=== PATIENT | male | born 1940 | race Caucasian/White ===

== ENCOUNTER 2020-08-15 08:44 | Day surgery (SDC) | payer MEDICARE, BC ==
[~2020-08-15 08:44] MED LIST: Lactated Ringers 1,000 ML IV SCH; Sodium Chloride 0.9% 10 ML Syringe FLUSH PRN
[2020-08-15] MEDS ORDERED: Citric Acid/Sodium Citrate Solution 30 ML Cup PO ONE (09:00)
[2020-08-15] MEDS ORDERED: fentaNYL 100 MCG/2 ML SDV ONE (09:11)
[2020-08-15] MEDS ORDERED: Propofol 200 MG/20 ML SDV ONE (09:11)
[2020-08-15 11:21] VITALS: BP 117/61; PULSE 74
--- NOTE | 2020-08-16 08:06 | OR ---
PREOPERATIVE DIAGNOSES: 1. History of colon polyps. 2. Iron deficiency anemia. POSTOPERATIVE DIAGNOSES: 1. Two small polyps removed. a. 2 mm polyp at 115 cm, removed using cold forceps. b. 4 mm polyp at 100 cm, removed using cold snare on the way in. 2. Long redundant colon. 3. Mild left-sided diverticulosis. 4. Mild hemorrhoids, not acutely inflamed. 5. Significantly enlarged prostate without any palpable nodules. PROCEDURE: Colonoscopy with polypectomy x2 (1 using cold forceps and 1 using cold snare). SURGEON: Sandeep Bauer M.D. ANESTHESIA: Monitored anesthesia care. BOWEL PREP: Fair. It did require moderate amount of irrigation and suctioning. DESCRIPTION OF PROCEDURE: Trevor is an 80-year-old male who was brought to the endoscopy suite after discussing risks and benefits of the procedure. Informed consent was obtained for conscious sedation and colonoscopy with or without biopsy and/or polypectomy. We also discussed possibility of missed lesions. Pre-procedure exam was unremarkable. IV, oxygen, and monitors were placed. The patient was placed in the left lateral decubitus position. Sedation was administered and a digital rectal exam was performed and was remarkable for significantly enlarged prostate, but no palpable nodules. Colonoscope was passed into the rectum and slowly advanced all the way to the cecum. Cecum was viewed and photographed. A brief view of the terminal ileum showed normal-appearing mucosa. Colonoscope was slowly withdrawn, mucosa closely observed in direct circumferential manner. The ascending colon revealed 2 mm polyp at 115 cm, removed using cold forceps. The transverse colon revealed 4 mm polyp at 100 cm, removed using cold snare. The descending and sigmoid colon revealed some mild diverticulosis. There was no inflammation or polyps noted on the left side. Retroflexion was performed. Rectal mucosa revealed some mild hemorrhoids, not acutely inflamed. Scope was removed. The patient tolerated the procedure well. The patient was monitored until that baseline status. Discharge instructions were reviewed and the patient was discharged in good condition. COMPLICATIONS: None. TOTAL TIME: 32 minutes. ESTIMATED BLOOD LOSS: About 1 mL. RECOMMENDATIONS/FOLLOWUP: We will await results of path report to determine ideal followup interval. Given the patient's age, he may even be done with colonoscopies. I would like to kindly thank Kasey Kim for this referral. DMB: 08/15/2020 12:20:59 MODL: 08/15/2020 14:53:59 /[id number]
--- NOTE | 2020-08-16 08:06 | OR ---
SURGERY DATE: 08/15/2020. REFERRING PROVIDER: Kasey Kim DO PRE-OPERATIVE DIAGNOSES: 1. Gastroesophageal reflux disease with esophagitis. The patient is on pantoprazole 40 mg p.o. twice a day. 2. Iron deficiency anemia. The patient denies any dysphagia. His last esophagogastroduodenoscopy was done in 2014 and 2015. POST-OPERATIVE DIAGNOSES: 1. 5 cm sliding-type hiatal hernia with some minimal esophagitis present. 2. Chronic appearing antritis. Cold biopsy x4 bites taken. PROCEDURE: Esophagogastroduodenoscopy with cold biopsy x1 site using cold forceps (antrum). SURGEON: Sandeep Bauer M.D. ANESTHESIA: Monitored anesthesia care. Trevor is an 80-year-old male who was brought to the endoscope suite after discussion of risks and benefits (including but not limited to reaction to medication, bleeding, infection, aspiration, perforation). Informed consent was obtained for monitored anesthesia care and esophagogastroduodenoscopy along with possible biopsy and/or dilatation. Pre-procedure exam including oral cavity was unremarkable. IV, oxygen, and monitors were placed. Patient was placed in the left lateral position and sedation was administered. A bite block was placed gently and scope lightly lubricated and passed through the bite block and over the tongue. Hypopharynx and vocal cords were visualized and unremarkable. Scope was passed through the cricopharynx and into the esophagus. The scope was then passed through the distal esophagus and the GE junction was visualized and photographed. The GE junction was remarkable for 5 cm sliding-type hiatal hernia with some minimal esophagitis present. Vocal cords were visualized and unremarkable. The scope was advanced into the stomach and gastric madera was suctioned. Pylorus was identified and intubated and then the scope was advanced to the third portion of the duodenum. The second portion of the duodenum was unremarkable. The duodenal bulb was visualized and unremarkable. The scope was brought back into the stomach. The pylorus and the antrum revealed what looked to be some chronic appearing antritis. Cold biopsy x4 bites were taken using cold forceps. We will also check for H pylori with these biopsies. The scope was then retroflexed to visualize the angularis, fundus, body, and cardia. These were unremarkable. The stomach was desufflated of air and then the scope was slowly withdrawn, and the esophagus was closely visualized during withdrawal all the way into the posterior pharynx and this was also unremarkable. The patient tolerated the procedure well and went to recovery in stable condition. The patient was monitored until at baseline status. Findings and discharge instructions were reviewed and the patient was discharged in good condition. COMPLICATIONS: None. TOTAL TIME: 9 minutes. ESTIMATED BLOOD LOSS: About 1 mL. RECOMMENDATIONS/FOLLOW-UP: We will await results of path report and send letter with results. The patient can continue on his Protonix 40 mg twice a day. Lifestyle modification with avoidance of late night meals was also warranted. I would like to kindly thank Kasey Kim for this referral. DMB: 08/15/2020 12:16:50 MODL: 08/15/2020 14:46:03 /[id number]
== END 2020-08-15 12:15 | disposition home or self-care (01) ==
LOC: VM.SDS 08:44
PROVIDERS: ATTEND Family Medicine
DX: D12.6 Benign neoplasm of colon, unspecified (principal); K57.30 Diverticulosis of large intestine without perforation or abscess without bleeding; K29.60 Other gastritis without bleeding; K21.00 Gastro-esophageal reflux disease with esophagitis, without bleeding; K31.89 Other diseases of stomach and duodenum; K64.9 Unspecified hemorrhoids; Q43.8 Other specified congenital malformations of intestine; K44.9 Diaphragmatic hernia without obstruction or gangrene; D50.9 Iron deficiency anemia, unspecified; N18.30 Chronic kidney disease, stage 3 unspecified; N40.0 Benign prostatic hyperplasia without lower urinary tract symptoms; Z01.812 Encounter for preprocedural laboratory examination; Z20.822 Contact with and (suspected) exposure to COVID-19; J44.9 Chronic obstructive pulmonary disease, unspecified; Z99.81 Dependence on supplemental oxygen; Z88.1 Allergy status to other antibiotic agents; Z87.891 Personal history of nicotine dependence; Z86.010 Personal history of colon polyps; Z86.718 Personal history of other venous thrombosis and embolism; Z87.19 Personal history of other diseases of the digestive system; Z98.890 Other specified postprocedural states; Z79.899 Other long term (current) drug therapy; Z88.5 Allergy status to narcotic agent
CPT/HCPCS: 00813; 88305; A9270-GY; J2704; J3010; J7120; U0002

== ENCOUNTER 2021-07-16 19:39 | Inpatient (IN) | payer MEDICARE, BC ==
[2021-07-16] MEDS ORDERED: Sodium Chloride 0.9% 10 ML Syringe FLUSH PRN (19:46)
[2021-07-16] MEDS ORDERED: Albuterol/Ipratropium 3.0-0.5 MG/3 ML Neb Soln NEB ONE (19:47)
[2021-07-16] MEDS ORDERED: Budesonide 0.5 MG/2 ML Neb Susp NEB ONE (19:58)
[2021-07-16] MEDS ORDERED: cefTRIAXone 2 GM Vial IVPUSH ONE (19:58)
[2021-07-16] MEDS ORDERED: methylPREDNISolone Sodium Succinate 125 MG/2 ML SDV IVPUSH ONE (19:58)
[2021-07-16] MEDS ORDERED: Lactated Ringers 1,000 ML IV ONE (20:04)
[2021-07-16] MEDS ORDERED: Azithromycin 500 MG in Sodium Chloride 0.9% 250 ML IV ONE (20:05)
[2021-07-16 20:32] LABS: CHLORIDE,CL 105 mmol/L (98-107); SODIUM,NA 145 mmol/L (136-145)
[2021-07-16 20:35] LABS: ANION GAP 16.1 mmol/L (5-15)
[2021-07-16 20:45] LABS: CORONAVIRUS COVID-19 NAA NEGATIVE (NEGATIVE); RESPIRATORY SYNCYTIAL VIR NAA NEGATIVE (NEGATIVE)
[2021-07-16] MEDS ORDERED: Acetaminophen 325 MG Tab PO PRN (22:21)
[2021-07-16] MEDS: Albuterol 0.083% 2.5 MG/3 ML Neb Soln NEB SCH (23:02)
[2021-07-16] MEDS: Lactated Ringers 1,000 ML IV SCH (23:12)
[2021-07-17] MEDS: methylPREDNISolone Sodium Succinate 125 MG/2 ML SDV IVPUSH SCH ×2 (02:28→08:59)
[2021-07-17] MEDS: Albuterol 0.083% 2.5 MG/3 ML Neb Soln NEB SCH ×5 (02:28→20:15)
[2021-07-17] MEDS: Lactated Ringers 1,000 ML IV SCH (06:30)
[2021-07-17] MEDS ORDERED: Pantoprazole 40 MG Tab.CR PO SCH (07:00)
[2021-07-17 07:16] LABS: ANION GAP 14.5 mmol/L (5-15)
[2021-07-17] MEDS ORDERED: Acetaminophen 500 MG Tab PO PRN (08:59)
[2021-07-17] MEDS ORDERED: Albuterol HFA 18 Gm Inhaler INH PRN (08:59)
[2021-07-17] MEDS ORDERED: Albuterol/Ipratropium 3.0-0.5 MG/3 ML Neb Soln NEB PRN (08:59)
[2021-07-17] MEDS ORDERED: Aluminum Hydroxide/Magnesium Hydroxide/Simethicone Susp 30 ML Cup PO PRN (08:59)
[2021-07-17] MEDS ORDERED: Melatonin 3 MG Tab PO PRN (08:59)
[2021-07-17] MEDS: methylPREDNISolone Sodium Succinate 40 MG/1 ML SDV IVPUSH SCH ×2 (10:43→20:20)
[2021-07-17] MEDS: Enoxaparin 30 MG/0.3 ML Syringe SUBCUT SCH (12:16)
[2021-07-17] MEDS: Vancomycin 125 MG Cap PO SCH ×3 (12:16→20:27)
[2021-07-17] MEDS: Calcium Carbonate 750 MG Tab.Chew PO PRN (17:07)
[2021-07-17] MEDS: Pantoprazole 40 MG Tab.CR PO SCH (17:07)
[2021-07-17] MEDS ORDERED: cefTRIAXone 2 GM Vial IVPUSH SCH ×2 (20:00)
[2021-07-17] MEDS: cefTRIAXone 1 GM Vial IVPUSH SCH (20:17)
[2021-07-17] MEDS ORDERED: Azithromycin 500 MG in Sodium Chloride 0.9% 500 ML IV SCH (21:00)
[2021-07-17] MEDS ORDERED: Azithromycin 250 MG in Sodium Chloride 0.9% 250 ML IV SCH (21:00)
[2021-07-17] MEDS ORDERED: Azithromycin 500 MG in Sodium Chloride 0.9% 250 ML IV SCH (21:00)
[2021-07-18] MEDS: Calcium Carbonate 750 MG Tab.Chew PO PRN ×2 (00:44→21:36)
[2021-07-18] MEDS: Pantoprazole 40 MG Tab.CR PO SCH ×2 (06:03→16:00)
[2021-07-18 07:12] LABS: ANION GAP 14.3 mmol/L (5-15)
[2021-07-18] MEDS: Cholecalciferol (Vitamin D3) 25 MCG Tab PO SCH (08:09)
[2021-07-18] MEDS: Lactobacillus Rhamnosus GG (Probiotic) Cap PO SCH (08:09)
[2021-07-18] MEDS: Multivitamins with Iron/Calcium/Folic Acid/Minerals Tab PO SCH (08:09)
[2021-07-18] MEDS: Vancomycin 125 MG Cap PO SCH ×4 (08:09→21:15)
[2021-07-18] MEDS: methylPREDNISolone Sodium Succinate 40 MG/1 ML SDV IVPUSH SCH ×2 (08:10→21:16)
[2021-07-18] MEDS ORDERED: Albuterol 0.083% 2.5 MG/3 ML Neb Soln NEB PRN (08:34)
[2021-07-18] MEDS: Azithromycin 250 MG Tab PO SCH (09:12)
[2021-07-18] MEDS: Finasteride 5 MG Tab PO SCH (09:12)
[2021-07-18] MEDS: Albuterol/Ipratropium 3.0-0.5 MG/3 ML Neb Soln NEB SCH ×3 (10:28→23:55)
[2021-07-18] MEDS: Enoxaparin 30 MG/0.3 ML Syringe SUBCUT SCH (11:38)
[2021-07-18] MEDS: Albuterol 0.083% 2.5 MG/3 ML Neb Soln NEB SCH (13:09)
[2021-07-18] MEDS: cefTRIAXone 1 GM Vial IVPUSH SCH (21:16)
[2021-07-19] MEDS: Albuterol/Ipratropium 3.0-0.5 MG/3 ML Neb Soln NEB SCH ×4 (07:05→18:23)
[2021-07-19] MEDS: Pantoprazole 40 MG Tab.CR PO SCH ×2 (07:11→17:17)
[2021-07-19] MEDS: Lactobacillus Rhamnosus GG (Probiotic) Cap PO SCH (08:26)
[2021-07-19] MEDS: Vancomycin 125 MG Cap PO SCH ×4 (08:26→19:57)
[2021-07-19] MEDS: Cholecalciferol (Vitamin D3) 25 MCG Tab PO SCH (08:26)
[2021-07-19] MEDS: Azithromycin 250 MG Tab PO SCH (08:26)
[2021-07-19] MEDS: methylPREDNISolone Sodium Succinate 40 MG/1 ML SDV IVPUSH SCH (08:26)
[2021-07-19] MEDS: Finasteride 5 MG Tab PO SCH (08:26)
[2021-07-19] MEDS: Multivitamins with Iron/Calcium/Folic Acid/Minerals Tab PO SCH (08:26)
[2021-07-19 08:29] LABS: ANION GAP 13.6 mmol/L (5-15)
[2021-07-19] MEDS: predniSONE 20 MG Tab PO SCH (11:10)
[2021-07-19] MEDS: Enoxaparin 30 MG/0.3 ML Syringe SUBCUT SCH (11:12)
[2021-07-19] MEDS: Amoxicillin/Clavulanate K 500-125 MG Tab PO SCH (19:57)
[2021-07-20] MEDS: Pantoprazole 40 MG Tab.CR PO SCH ×3 (06:21→16:00)
[2021-07-20] MEDS: Albuterol/Ipratropium 3.0-0.5 MG/3 ML Neb Soln NEB SCH ×3 (07:01→14:45)
[2021-07-20] MEDS: Multivitamins with Iron/Calcium/Folic Acid/Minerals Tab PO SCH (07:48)
[2021-07-20] MEDS: Vancomycin 125 MG Cap PO SCH ×3 (07:48→15:56)
[2021-07-20] MEDS: Cholecalciferol (Vitamin D3) 25 MCG Tab PO SCH (07:48)
[2021-07-20] MEDS: Lactobacillus Rhamnosus GG (Probiotic) Cap PO SCH (07:48)
[2021-07-20] MEDS: Amoxicillin/Clavulanate K 500-125 MG Tab PO SCH ×2 (07:48→15:56)
[2021-07-20] MEDS: Finasteride 5 MG Tab PO SCH (07:48)
[2021-07-20] MEDS: predniSONE 20 MG Tab PO SCH (07:48)
[2021-07-20] MEDS: Azithromycin 250 MG Tab PO SCH (07:48)
[2021-07-20 08:10] LABS: ANION GAP 13.3 mmol/L (5-15)
[2021-07-20] MEDS: Enoxaparin 30 MG/0.3 ML Syringe SUBCUT SCH (11:36)
[2021-07-20 14:10] VITALS: BP 124/82; PULSE 73
== END 2021-07-20 16:35 | disposition home or self-care (01) | DRG 871 ==
LOC: VM.ED 19:39 → VM.MS 21:11
PROVIDERS: ADMIT Nurse Practitioner Family; ATTEND Nurse Practitioner Family
DX: A41.9 Sepsis, unspecified organism (principal); A41.89 Other specified sepsis; J18.9 Pneumonia, unspecified organism; J44.0 Chronic obstructive pulmonary disease with (acute) lower respiratory infection; J44.1 Chronic obstructive pulmonary disease with (acute) exacerbation; J96.11 Chronic respiratory failure with hypoxia; N17.9 Acute kidney failure, unspecified; G93.40 Encephalopathy, unspecified; Z87.01 Personal history of pneumonia (recurrent); R65.20 Severe sepsis without septic shock; K21.9 Gastro-esophageal reflux disease without esophagitis; N40.1 Benign prostatic hyperplasia with lower urinary tract symptoms; Z20.822 Contact with and (suspected) exposure to COVID-19; R33.8 Other retention of urine; Z87.891 Personal history of nicotine dependence; Z88.8 Allergy status to other drugs, medicaments and biological substances; N18.30 Chronic kidney disease, stage 3 unspecified; G47.30 Sleep apnea, unspecified; D63.1 Anemia in chronic kidney disease; F32.A Depression, unspecified; Z86.19 Personal history of other infectious and parasitic diseases; Z88.5 Allergy status to narcotic agent; Z79.899 Other long term (current) drug therapy; Z86.718 Personal history of other venous thrombosis and embolism; Z79.01 Long term (current) use of anticoagulants; Z98.49 Cataract extraction status, unspecified eye
CPT/HCPCS: 0241U; 36415; 51798; 70450; 71045; 71046; 80048; 80053; 81001; 82140; 82803; 83605; 83880; 84145; 85025; 85027; 86140; 87040; 87077; 87086; 87186; 92610-GN; 93005; 94640; 94667; 94668; 94760; 96365; 96375; 97161-GP; 97165-GO; 99285-25; A9270-GY; J0456; J0696; J1650; J2920; J2930; J7050; J7120; J7512; J7613-GY; J7620-GY

== ENCOUNTER 2021-09-27 16:09 | Inpatient (IN) | payer MEDICARE, BC ==
[2021-09-27] MEDS ORDERED: Sodium Chloride 0.9% 1,000 ML IV ONE ×2 (16:16→17:21)
[2021-09-27] MEDS ORDERED: Ondansetron 4 MG/2 ML SDV IVPUSH ONE (16:16)
[2021-09-27] MEDS ORDERED: Sodium Chloride 0.9% 10 ML Syringe FLUSH PRN (16:16)
[2021-09-27 17:05] LABS: ANION GAP 10.5 mmol/L (5-15); CHLORIDE,CL 103 mmol/L (98-107); SODIUM,NA 138 mmol/L (136-145)
[2021-09-27] MEDS ORDERED: Acetaminophen 325 MG Tab PO ONE (18:08)
[2021-09-27] MEDS ORDERED: cefTRIAXone 2 GM Vial IVPUSH ONE (18:28)
[2021-09-27] MEDS ORDERED: Albuterol 0.083% 2.5 MG/3 ML Neb Soln NEB PRN (22:48)
[2021-09-27] MEDS ORDERED: Ondansetron 4 MG Tab.DIS PO PRN (22:48)
[2021-09-27] MEDS ORDERED: Acetaminophen/HYDROcodone 325-5 MG Tab PO PRN (22:48)
[2021-09-27] MEDS ORDERED: Docusate Sodium 100 MG Cap PO PRN (22:48)
[2021-09-27] MEDS ORDERED: Albuterol 2.5 MG/0.5 ML UD Neb NEB PRN (22:52)
[2021-09-27] MEDS ORDERED: Ferrous Sulfate 325 MG Tab PO SCH (23:00)
[2021-09-27] MEDS ORDERED: Simethicone 80 MG Tab.Chew PO PRN (23:06)
[2021-09-28] MEDS ORDERED: Sodium Chloride 0.9% 1,000 ML IV STA (05:58)
[2021-09-28] MEDS: Albuterol/Ipratropium 3.0-0.5 MG/3 ML Neb Soln NEB SCH ×3 (06:13→22:35)
[2021-09-28] MEDS: Pantoprazole 40 MG Tab.CR PO SCH ×2 (06:17→17:46)
[2021-09-28] MEDS: Formoterol/Mometasone 100-5 MCG 8.8 GM Inhaler IH SCH ×2 (06:17→19:40)
[2021-09-28] MEDS: Calcium Carbonate 750 MG Tab.Chew PO PRN ×2 (06:17→18:14)
[2021-09-28] MEDS ORDERED: Lactobacillus Rhamnosus GG (Probiotic) Cap PO SCH (08:00)
[2021-09-28 08:18] LABS: CHLORIDE,CL 107 mmol/L (98-107); SODIUM,NA 140 mmol/L (136-145)
[2021-09-28 08:19] LABS: ANION GAP 9.4 mmol/L (5-15)
[2021-09-28] MEDS: Enoxaparin 30 MG/0.3 ML Syringe SUBCUT SCH (10:00)
[2021-09-28] MEDS: Lactobacillus Rhamnosus GG (Probiotic) Cap PO SCH (10:01)
[2021-09-28] MEDS: Cholecalciferol (Vitamin D3) 25 MCG Tab PO SCH (10:01)
[2021-09-28] MEDS: Tiotropium Bromide 4 GM Inhalation Spray (2.5mcg/1 dose; 10 doses) INH SCH (10:17)
[2021-09-28] MEDS: Levofloxacin/Dextrose 5%-Water 500 MG in Premix Bag 1 BAG IV SCH (10:19)
[2021-09-28] MEDS ORDERED: Norepinephrine 4 MG in Dextrose 5% in Water 246 ML IV SCH ×2 (10:30)
[2021-09-28] MEDS: Acetaminophen 325 MG Tab PO PRN ×2 (14:46→18:13)
[2021-09-28] MEDS: cefTRIAXone 2 GM Vial IVPUSH SCH (17:47)
[2021-09-28] MEDS: Melatonin 3 MG Tab PO PRN (19:39)
[2021-09-29] MEDS: Albuterol/Ipratropium 3.0-0.5 MG/3 ML Neb Soln NEB SCH ×2 (06:01→17:51)
[2021-09-29] MEDS: Pantoprazole 40 MG Tab.CR PO SCH ×2 (06:01→17:51)
[2021-09-29] MEDS: Formoterol/Mometasone 100-5 MCG 8.8 GM Inhaler IH SCH ×2 (06:04→20:18)
[2021-09-29] MEDS: cefTRIAXone 2 GM Vial IVPUSH SCH (08:05)
[2021-09-29] MEDS ORDERED: Bisacodyl 5 MG Tab PO ONE (08:36)
[2021-09-29] MEDS: Levofloxacin/Dextrose 5%-Water 500 MG in Premix Bag 1 BAG IV SCH (09:53)
[2021-09-29] MEDS: Lactobacillus Rhamnosus GG (Probiotic) Cap PO SCH (09:54)
[2021-09-29] MEDS: Tiotropium Bromide 4 GM Inhalation Spray (2.5mcg/1 dose; 10 doses) INH SCH (09:54)
[2021-09-29] MEDS: Cholecalciferol (Vitamin D3) 25 MCG Tab PO SCH (09:54)
[2021-09-29] MEDS: Enoxaparin 30 MG/0.3 ML Syringe SUBCUT SCH (09:55)
[2021-09-29] MEDS: Levofloxacin 500 MG Tab PO SCH (17:51)
[2021-09-29] MEDS: Vancomycin 125 MG Cap PO SCH ×2 (17:51→20:18)
[2021-09-29] MEDS: Melatonin 3 MG Tab PO PRN (20:18)
[2021-09-30] MEDS: Albuterol/Ipratropium 3.0-0.5 MG/3 ML Neb Soln NEB SCH ×4 (00:48→22:09)
[2021-09-30] MEDS: Pantoprazole 40 MG Tab.CR PO SCH ×2 (06:03→17:34)
[2021-09-30] MEDS: Formoterol/Mometasone 100-5 MCG 8.8 GM Inhaler IH SCH ×2 (06:04→20:24)
[2021-09-30] MEDS ORDERED: Bisacodyl 10 MG Supp RECTAL ONE (08:30)
[2021-09-30] MEDS ORDERED: Melatonin 3 MG Tab PO PRN (08:35)
[2021-09-30] MEDS: Acetaminophen 325 MG Tab PO PRN (09:01)
[2021-09-30] MEDS: Lactobacillus Rhamnosus GG (Probiotic) Cap PO SCH (09:01)
[2021-09-30] MEDS: Vancomycin 125 MG Cap PO SCH ×4 (09:01→20:22)
[2021-09-30] MEDS: Enoxaparin 30 MG/0.3 ML Syringe SUBCUT SCH (09:01)
[2021-09-30] MEDS: Cholecalciferol (Vitamin D3) 25 MCG Tab PO SCH (09:01)
[2021-09-30] MEDS: Tiotropium Bromide 4 GM Inhalation Spray (2.5mcg/1 dose; 10 doses) INH SCH (09:02)
[2021-09-30] MEDS: Calcium Carbonate 750 MG Tab.Chew PO PRN (09:03)
[2021-09-30 09:15] LABS: ANION GAP 14.6 mmol/L (5-15)
[2021-09-30] MEDS: Finasteride 5 MG Tab PO SCH (10:31)
[2021-09-30] MEDS: Levofloxacin 500 MG Tab PO SCH (15:53)
[2021-10-01] MEDS: Pantoprazole 40 MG Tab.CR PO SCH (06:28)
[2021-10-01] MEDS: Formoterol/Mometasone 100-5 MCG 8.8 GM Inhaler IH SCH (06:29)
[2021-10-01] MEDS: Albuterol/Ipratropium 3.0-0.5 MG/3 ML Neb Soln NEB SCH ×2 (06:29→15:01)
[2021-10-01 06:34] VITALS: BP 115/65; PULSE 96
[2021-10-01 06:39] LABS: ANION GAP 13.4 mmol/L (5-15)
[2021-10-01] MEDS: Enoxaparin 30 MG/0.3 ML Syringe SUBCUT SCH (07:49)
[2021-10-01] MEDS: Cholecalciferol (Vitamin D3) 25 MCG Tab PO SCH (07:50)
[2021-10-01] MEDS: Acetaminophen 325 MG Tab PO PRN (07:50)
[2021-10-01] MEDS: Lactobacillus Rhamnosus GG (Probiotic) Cap PO SCH (07:50)
[2021-10-01] MEDS: Tiotropium Bromide 4 GM Inhalation Spray (2.5mcg/1 dose; 10 doses) INH SCH (07:50)
[2021-10-01] MEDS: Vancomycin 125 MG Cap PO SCH ×3 (07:50→15:05)
[2021-10-01] MEDS: Finasteride 5 MG Tab PO SCH (07:50)
[2021-10-01] MEDS: Levofloxacin 500 MG Tab PO SCH (15:05)
== END 2021-10-01 15:30 | disposition home or self-care (01) | DRG 872 ==
LOC: VM.ED 16:09 → VM.MS 20:22 → OBSVTOIN 09-29 08:33
PROVIDERS: ADMIT Physician Assistant; ATTEND Internal Medicine
PROC: 3E033XZ Introduction of Vasopressor into Peripheral Vein, Percutaneous Approach (ICD-10-PCS; principal; 2021-09-29)
DX: A41.9 Sepsis, unspecified organism (principal); J96.11 Chronic respiratory failure with hypoxia; N30.01 Acute cystitis with hematuria; L03.314 Cellulitis of groin; N49.2 Inflammatory disorders of scrotum; J44.9 Chronic obstructive pulmonary disease, unspecified; N45.1 Epididymitis; Z86.718 Personal history of other venous thrombosis and embolism; R41.0 Disorientation, unspecified; N18.30 Chronic kidney disease, stage 3 unspecified; R13.10 Dysphagia, unspecified; K59.00 Constipation, unspecified; I95.9 Hypotension, unspecified; D64.9 Anemia, unspecified; Z88.8 Allergy status to other drugs, medicaments and biological substances; N40.0 Benign prostatic hyperplasia without lower urinary tract symptoms; H52.4 Presbyopia; H52.00 Hypermetropia, unspecified eye; G47.30 Sleep apnea, unspecified; K21.9 Gastro-esophageal reflux disease without esophagitis; F32.A Depression, unspecified; Z87.891 Personal history of nicotine dependence; Z85.828 Personal history of other malignant neoplasm of skin; Z88.5 Allergy status to narcotic agent; Z79.899 Other long term (current) drug therapy; Z87.01 Personal history of pneumonia (recurrent); Z86.010 Personal history of colon polyps; Z98.49 Cataract extraction status, unspecified eye; J43.9 Emphysema, unspecified; Z86.19 Personal history of other infectious and parasitic diseases; Z20.822 Contact with and (suspected) exposure to COVID-19
CPT/HCPCS: 36415; 51798; 71046; 74176; 76870; 80048; 80053; 81001; 82803; 83605; 84145; 85025; 86140; 87040; 87086; 87088; 87186; 94640; 96365; 96366; 96372; 96374; 96375; 96376; 97162-GP; 99225; 99285-25; A9270-GY; G0378; J0696; J1650; J1956; J2405; J7030; J7060; J7620-GY; U0002

== ENCOUNTER 2022-01-18 19:12 | Emergency (ER) | payer MEDICARE, BC ==
[2022-01-18] MEDS: Take Home: Doxycycline 100 MG Tab, 4 Tab Pack PO ONE (21:05)
[2022-01-19 04:46] VITALS: BP 114/59; PULSE 71
== END 2022-01-18 21:15 | disposition home or self-care (01) ==
LOC: VM.ED 19:12
DX: S90.465A Insect bite (nonvenomous), left lesser toe(s), initial encounter (principal); J44.9 Chronic obstructive pulmonary disease, unspecified; Z88.5 Allergy status to narcotic agent; Z88.8 Allergy status to other drugs, medicaments and biological substances; Z79.899 Other long term (current) drug therapy; W57.XXXA Bitten or stung by nonvenomous insect and other nonvenomous arthropods, initial encounter
CPT/HCPCS: 99282; A9270-GY

== ENCOUNTER 2022-02-06 02:13 | Emergency (ER) | payer MEDICARE, BC ==
[2022-02-06 02:25] VITALS: BP 119/59; PULSE 76
== END 2022-02-06 03:38 | disposition home or self-care (01) ==
LOC: VM.ED 02:13
DX: S01.21XA Laceration without foreign body of nose, initial encounter (principal); R04.0 Epistaxis; J44.9 Chronic obstructive pulmonary disease, unspecified; K21.9 Gastro-esophageal reflux disease without esophagitis; N18.30 Chronic kidney disease, stage 3 unspecified; Z88.5 Allergy status to narcotic agent; Z79.899 Other long term (current) drug therapy; Z87.891 Personal history of nicotine dependence; W22.09XA Striking against other stationary object, initial encounter
CPT/HCPCS: 12011; 30901; 99283; 99284

== ENCOUNTER 2022-05-24 19:45 | Emergency (ER) | payer MEDICARE, BC ==
[2022-05-24] MEDS ORDERED: Sodium Chloride 0.9% 10 ML Syringe FLUSH PRN (20:02)
[2022-05-24] MEDS ORDERED: Albuterol/Ipratropium 3.0-0.5 MG/3 ML Neb Soln NEB ONE (20:05)
[2022-05-24] MEDS ORDERED: methylPREDNISolone Sodium Succinate 125 MG/2 ML SDV IV ONE (20:05)
[2022-05-24] MEDS ORDERED: cefTRIAXone 2 GM Vial IVPUSH ONE (20:19)
[2022-05-24 20:55] LABS: PTT,PARTIAL THROMBOPLSTIN TIME 32.6 SEC (20.5-30.9)
[2022-05-24 20:59] LABS: CORONAVIRUS COVID-19 NAA INVALID (NEGATIVE); RESPIRATORY SYNCYTIAL VIR NAA INVALID (NEGATIVE)
[2022-05-24 21:09] LABS: CHLORIDE,CL 104 mmol/L (98-107); SODIUM,NA 141 mmol/L (136-145)
[2022-05-24 21:11] LABS: ANION GAP 16.7 mmol/L (5-15); ESTIMATED GFR 31 mL/min (>=60)
[2022-05-24 21:17] LABS: PCO2 ARTERIAL,POC 35 mmHg (35-48)
[2022-05-24] MEDS ORDERED: Lidocaine 1% 30 ML SDV ONE (21:27)
[2022-05-24] MEDS ORDERED: fentaNYL 50 MCG/ML SDV ONE (21:35)
[2022-05-24 21:43] LABS: CORONAVIRUS COVID-19 NAA NEGATIVE (NEGATIVE); RESPIRATORY SYNCYTIAL VIR NAA NEGATIVE (NEGATIVE)
[2022-05-24] MEDS ORDERED: Lactated Ringers 1,000 ML IV ONE (22:16)
[2022-05-24] MEDS: Lactated Ringers 1,000 ML IV ONE ×2 (22:20→22:52)
[2022-05-24] MEDS ORDERED: Azithromycin 500 MG in Sodium Chloride 0.9% 250 ML IV ONE (22:27)
[2022-05-25 00:14] VITALS: BP 126/84; PULSE 93
== END 2022-05-24 23:40 | disposition home or self-care (01) ==
LOC: VM.ED 19:45
DX: J93.9 Pneumothorax, unspecified (principal); J44.1 Chronic obstructive pulmonary disease with (acute) exacerbation; K21.9 Gastro-esophageal reflux disease without esophagitis; N18.30 Chronic kidney disease, stage 3 unspecified; F17.200 Nicotine dependence, unspecified, uncomplicated; Z88.5 Allergy status to narcotic agent; Z88.8 Allergy status to other drugs, medicaments and biological substances; Z79.899 Other long term (current) drug therapy; Z20.822 Contact with and (suspected) exposure to COVID-19
CPT/HCPCS: 0241U; 32551; 36415; 36600; 71045; 80053; 82803; 83605; 83735; 83880; 84100; 84443; 84484; 85025; 85610; 85730; 86140; 87040; 93005; 96361; 96365; 96375; 99284; J0456; J0696; J2930; J3010; J7050; J7120; J7620-GY

== ENCOUNTER 2023-12-09 19:47 | Inpatient (IN) | payer MEDICARE, BC ==
[2023-12-09] MEDS ORDERED: Sodium Chloride 0.9% 10 ML Syringe FLUSH PRN (19:56)
[2023-12-09 20:04] LABS: BASOPHILS PERCENT AUTO 0.1 % (0.2-1.2); HEMATOCRIT 39.3 % (40.0-52.0); HEMOGLOBIN 13.3 g/dL (14.0-18.0); IMMATURE GRAN ABSOLUTE AUTO 0.03 x10^3/uL (0.00-0.07); LYMPHOCYTES ABSOLUTE AUTO 0.4 x10^3/uL (1.0-4.8); MEAN CORPUSCULAR HEMOGLOBIN 32.8 pg (26.0-32.0); MEAN CORPUSCULAR HGB CONC 33.8 g/dL (32.0-36.0); MEAN CORPUSCULAR VOLUME 96.8 fL (78.0-93.0); MONOCYTES ABSOLUTE AUTO 0.5 x10^3/uL (0.0-0.8); MONOCYTES PERCENT AUTO 3.1 % (2.0-11.0); NEUTROPHILS ABSOLUTE AUTO 15.2 x10^3/uL (1.8-7.7); NEUTROPHILS PERCENT AUTO 93.9 % (50.0-80.0); PLATELET COUNT,PLT 215 x10^3/uL (130-400); RED BLOOD CELL COUNT 4.06 x10^6/uL (4.5-6.0); WHITE BLOOD CELL COUNT,WBC 16.2 x10^3/uL (4.0-10.0)
[2023-12-09] MEDS: cefTRIAXone 2 GM Vial IVPUSH ONE (20:16)
[2023-12-09] MEDS: methylPREDNISolone Sodium Succinate 125 MG/2 ML SDV IV ONE (20:16)
[2023-12-09] MEDS: Albuterol/Ipratropium 3.0-0.5 MG/3 ML Neb Soln NEB ONE (20:16)
[2023-12-09] MEDS: Azithromycin 500 MG in Sodium Chloride 0.9% 250 ML IV ONE (20:16)
[2023-12-09 20:32] LABS: PROTHROMBIN TIME 10.6 SEC (8.9-11.5); PTT,PARTIAL THROMBOPLSTIN TIME 29.2 SEC (21.9-33.8)
[2023-12-09 20:38] LABS: LACTIC ACID 3.2 mmol/L (0.4-2.0)
[2023-12-09 20:43] LABS: A/G RATIO 0.8; ALBUMIN 3.2 g/dL (3.4-5.0); BILIRUBIN TOTAL 1.1 mg/dL (0.2-1.0); C-REACTIVE PROTEIN 10.05 mg/dL (<=0.50); CALCIUM 10.3 mg/dL (8.5-10.1); CREATININE 2.4 mg/dL (0.70-1.30); EST CRCL DRUG DOSING (CG) 23.32 mL/min; MAGNESIUM 1.7 mg/dL (1.8-2.4); POTASSIUM,K 5.3 mmol/L (3.5-5.1); PROTEIN TOTAL,TP 7.2 g/dL (6.4-8.2)
[2023-12-09 20:46] LABS: ANION GAP 19.3 mmol/L (5-15)
[2023-12-09 20:53] LABS: LYMPHOCYTES PERCENT AUTO 2.7 % (25.0-50.0)
[2023-12-09 20:56] LABS: BASE EXCESS ARTERIAL,POC -2 mmol/L ((-2)-3); HCO3 ARTERIAL,POC 21.3 mmol/L (21-28); O2 SATURATION ARTERIAL,POC 99.5 % (94-98); PCO2 ARTERIAL,POC 27 mmHg (35-48); PO2 ARTERIAL,POC 147 mmHg (83-108); TCO2 ARTERIAL,POC 20.7 mmol/L (22-29)
[2023-12-09 21:06] LABS: CORONAVIRUS COVID-19 NAA NEGATIVE (NEGATIVE); INFLUENZA A NAA NEGATIVE (NEGATIVE); INFLUENZA B NAA NEGATIVE (NEGATIVE); RESPIRATORY SYNCYTIAL VIR NAA NEGATIVE (NEGATIVE)
[2023-12-09] MEDS: Sodium Chloride 0.9% 1,000 ML IV SCH (21:06)
[2023-12-09] MEDS ORDERED: Docusate Sodium 100 MG Cap PO PRN (21:59)
[2023-12-09] MEDS ORDERED: Sennosides 8.6 MG Tab PO PRN (21:59)
[2023-12-09] MEDS ORDERED: Melatonin 3 MG Tab PO PRN (21:59)
[2023-12-09] MEDS ORDERED: Acetaminophen 500 MG Tab PO PRN (21:59)
[2023-12-10] MEDS: Heparin Sodium 5,000 Units/ML Vial SUBCUT SCH (00:34)
[2023-12-10] MEDS: Levalbuterol HCl 1.25 MG/3 ML Neb NEB SCH (06:10)
[2023-12-10] MEDS: Pantoprazole 40 MG Tab.CR PO SCH (06:11)
[2023-12-10 07:00] LABS: BASOPHILS PERCENT AUTO 0.1 % (0.2-1.2); HEMATOCRIT 33.8 % (40.0-52.0); HEMOGLOBIN 11.5 g/dL (14.0-18.0); IMMATURE GRAN ABSOLUTE AUTO 0.09 x10^3/uL (0.00-0.07); LYMPHOCYTES ABSOLUTE AUTO 0.4 x10^3/uL (1.0-4.8); LYMPHOCYTES PERCENT AUTO 2.5 % (25.0-50.0); MEAN CORPUSCULAR VOLUME 96.8 fL (78.0-93.0); MONOCYTES ABSOLUTE AUTO 0.4 x10^3/uL (0.0-0.8); MONOCYTES PERCENT AUTO 2.6 % (2.0-11.0); NEUTROPHILS PERCENT AUTO 94.2 % (50.0-80.0); RED BLOOD CELL COUNT 3.49 x10^6/uL (4.5-6.0); WHITE BLOOD CELL COUNT,WBC 15.9 x10^3/uL (4.0-10.0)
[2023-12-10 07:14] LABS: BASE EXCESS ARTERIAL,POC -4 mmol/L ((-2)-3); HCO3 ARTERIAL,POC 20.3 mmol/L (21-28); O2 SATURATION ARTERIAL,POC 95.9 % (94-98); PCO2 ARTERIAL,POC 29 mmHg (35-48); PH ARTERIAL,POC 7.46 pH (7.35-7.45); PO2 ARTERIAL,POC 75 mmHg (83-108); TCO2 ARTERIAL,POC 19.9 mmol/L (22-29)
[2023-12-10 07:18] LABS: PLATELET COUNT,PLT 197 x10^3/uL (130-400)
[2023-12-10 07:24] LABS: A/G RATIO 0.78; ALBUMIN 2.8 g/dL (3.4-5.0); BILIRUBIN TOTAL 0.7 mg/dL (0.2-1.0); C-REACTIVE PROTEIN 17.93 mg/dL (<=0.50); CALCIUM 9.3 mg/dL (8.5-10.1); CREATININE 2.1 mg/dL (0.70-1.30); EST CRCL DRUG DOSING (CG) 26.65 mL/min; MAGNESIUM 1.8 mg/dL (1.8-2.4); POTASSIUM,K 4.8 mmol/L (3.5-5.1); PROTEIN TOTAL,TP 6.4 g/dL (6.4-8.2)
[2023-12-10 07:27] LABS: ANION GAP 14.8 mmol/L (5-15)
[2023-12-10] MEDS: Lactated Ringers 1,000 ML IV ONE (07:51)
[2023-12-10] MEDS: Cyanocobalamin (Vitamin B12) 1,000 MCG Tab PO SCH (09:14)
[2023-12-10] MEDS: Magnesium Oxide 400 MG Tab PO SCH (09:14)
[2023-12-10] MEDS: Lactobacillus Rhamnosus GG (Probiotic) Cap PO SCH (09:15)
[2023-12-10] MEDS: methylPREDNISolone Sodium Succinate 125 MG/2 ML SDV IVPUSH SCH (09:15)
[2023-12-10] MEDS: Multivitamin Tab PO SCH (09:15)
[2023-12-10] MEDS: Finasteride 5 MG Tab PO SCH (09:15)
[2023-12-10] MEDS: Azithromycin 250 MG Tab PO SCH (09:15)
[2023-12-10] MEDS: cefTRIAXone 2 GM Vial IVPUSH SCH (09:18)
[2023-12-10] MEDS ORDERED: Sennosides/Docusate Sodium 50-8.6 MG Tab PO PRN (09:35)
[2023-12-10] MEDS: Tiotropium Bromide 4 GM Inhalation Spray (2.5mcg/1 dose; 10 doses) INH SCH (10:05)
[2023-12-10] MEDS: Formoterol/Mometasone 100-5 MCG 8.8 GM Inhaler INH SCH (10:06)
[2023-12-10] MEDS ORDERED: Calcium Carbonate 750 MG Tab.Chew PO PRN (10:57)
[2023-12-10] MEDS: Sodium Chloride 0.9% 1,000 ML IV SCH (14:30)
[2023-12-10] MEDS: LORazepam 0.5 MG Tab PO PRN (14:45)
[2023-12-10] MEDS ORDERED: [UNRECOGNIZED DRUG - OTHER] PO SCH (21:00)
[2023-12-10] MEDS ORDERED: DOXYLAMINE PO SCH (21:00)
[2023-12-10] MEDS ORDERED: ACETAMINOPHEN PO SCH (21:00)
[2023-12-10] MEDS: Ferrous Sulfate 325 MG Tab PO SCH (21:52)
[2023-12-11] MEDS: Albuterol HFA 18 Gm Inhaler INH PRN (06:06)
[2023-12-11 07:52] LABS: HEMATOCRIT 34.2 % (40.0-52.0); HEMOGLOBIN 11.4 g/dL (14.0-18.0); IMMATURE GRAN ABSOLUTE AUTO 0.16 x10^3/uL (0.00-0.07); LYMPHOCYTES ABSOLUTE AUTO 0.3 x10^3/uL (1.0-4.8); LYMPHOCYTES PERCENT AUTO 1.5 % (25.0-50.0); MEAN CORPUSCULAR HEMOGLOBIN 32.7 pg (26.0-32.0); MEAN CORPUSCULAR HGB CONC 33.3 g/dL (32.0-36.0); MONOCYTES ABSOLUTE AUTO 0.5 x10^3/uL (0.0-0.8); MONOCYTES PERCENT AUTO 2.8 % (2.0-11.0); NEUTROPHILS ABSOLUTE AUTO 15.5 x10^3/uL (1.8-7.7); PLATELET COUNT,PLT 195 x10^3/uL (130-400); RED BLOOD CELL COUNT 3.49 x10^6/uL (4.5-6.0); WHITE BLOOD CELL COUNT,WBC 16.4 x10^3/uL (4.0-10.0)
[2023-12-11 08:22] LABS: A/G RATIO 0.71; BILIRUBIN TOTAL 0.3 mg/dL (0.2-1.0); C-REACTIVE PROTEIN 21.79 mg/dL (<=0.50); CALCIUM 9.3 mg/dL (8.5-10.1); POTASSIUM,K 4.4 mmol/L (3.5-5.1); PROTEIN TOTAL,TP 7.2 g/dL (6.4-8.2)
[2023-12-11 08:27] LABS: EST CRCL DRUG DOSING (CG) 27.99 mL/min; NEUTROPHILS PERCENT AUTO 94.7 % (50.0-80.0)
[2023-12-11 08:28] LABS: ANION GAP 16.4 mmol/L (5-15)
[2023-12-11 11:59] VITALS: BP 143/72; PULSE 87
== END 2023-12-11 12:20 | disposition short-term general hospital (02) | DRG 871 ==
LOC: VM.ED 19:47 → VM.MS 21:50
PROVIDERS: ADMIT Family Medicine; ATTEND Internal Medicine
DX: A41.9 Sepsis, unspecified organism (principal); J15.9 Unspecified bacterial pneumonia; J96.01 Acute respiratory failure with hypoxia; J44.1 Chronic obstructive pulmonary disease with (acute) exacerbation; J44.0 Chronic obstructive pulmonary disease with (acute) lower respiratory infection; Z79.899 Other long term (current) drug therapy; N17.9 Acute kidney failure, unspecified; R65.20 Severe sepsis without septic shock; K21.9 Gastro-esophageal reflux disease without esophagitis; E86.0 Dehydration; G31.84 Mild cognitive impairment of uncertain or unknown etiology; B96.89 Other specified bacterial agents as the cause of diseases classified elsewhere; N18.31 Chronic kidney disease, stage 3a; D63.1 Anemia in chronic kidney disease; Z88.5 Allergy status to narcotic agent; Z88.8 Allergy status to other drugs, medicaments and biological substances; Z98.49 Cataract extraction status, unspecified eye; Z86.010 Personal history of colon polyps
CPT/HCPCS: 0241U; 36415; 36600; 71045; 80053; 82803; 83605; 83735; 83880; 84145; 84484; 85025; 85379; 85610; 85730; 86140; 87040; 87205; 93005; 94640; 96365; 96375; 97162; 97165; 97535; 99238; 99285; A9270-GY; J0456; J0696; J1644; J2919; J7030; J7050; J7612-GY; J7620-GY